=== PATIENT | female | born 1960 | race Caucasian/White ===

== ENCOUNTER 2017-08-21 16:30 | Inpatient (IN) | payer OTHER ==
[2017-08-21 17:30] LABS: BASOPHILS % 0.3 (0.0-1.5); EOSINOPHILS % 1.1 % (0.0-6.8); MEAN CORPUSCULAR HEMOGLOBIN 32.9 pg (28.0-34.0); MEAN CORPUSCULAR VOLUME 94.8 fl (80.0-100.0); MONOCYTES % 5.2 % (0.0-11.0); NEUTROPHILS # 6.4 # k/uL (1.4-7.7)
[2017-08-21 17:42] LABS: eGFR (African) > 60; eGFR (Non-African) > 60
--- NOTE | 2017-08-21 17:49 | ED Physician Documentation ---
Syncope/Near Syncope - HISTORIAN Historian: patient - HPI Stated Complaint: L shoulder pain Chief Complaint: Syncope Witnessed: No Position at Time of Episode: sitting Symptoms Prior to Episode: other Character of Events(s): lost consciousness Location of Injury: [place] Further Comments: yes (56 year old female patient presents with left shoulder pain. Patient states she fell in the closet and injuried her left shoulder around 1300. Patient reports she was going to the bathroom, when she passed completely out, woke up on floor. On arrival patient's heart 42-48) - ROS CONST: denies: recent illness, fever EYES/ENT: none GI/: denies: diarrhea, black stools, problems urinating, other LNMP: denies: , post menopausal, missed periods, heavy periods, abnml bleed, irregualar periods, other MS/SKIN/LYMPH: denies: joint pain, leg swelling, rash, swollen glands, ankle swelling, other NEURO/PSYCH: denies: confusion, anxiety, depression, other - PAST HX Cardiac Disease: none PE Risk Factors: hypertension Surgeries/Procedures: appendectomy, other (D&C) Allergies/Adverse Reactions: Allergies Allergy/AdvReac Type Severity Reaction Status Date / Time cefaclor [From Ceclor] Allergy Verified 08/21/17 17:07 Penicillins Allergy Verified 08/21/17 17:06 Home Medications: Ambulatory Orders Medication Instructions Recorded Lisinopril [Zestril] 1 tab PO DAILY 08/21/17 - SOCIAL HX Smoking History: cigarettes Alcohol Use: other (patient reports "occassional") - FAMILY HX Family History: denies: none - VITAL SIGNS Vital Signs: Vital Signs Temp Pulse Resp BP Pulse Ox 96.8 F L 96 H 17 139/67 96 08/21/17 16:40 08/21/17 16:40 08/21/17 16:40 08/21/17 16:40 08/21/17 16:40 - REVIEWED ASSESSMENTS Nursing Assessment Reviewed: Yes Vitals Reviewed: Yes Progress - Progress Progress: Patient heart rate 40's; BP stable. 1645 SR 60's now 1745 Reviewed xray and lab results with patient; Patient reports drinking 1 beer today; denies daily ETOH use. Explained that patient would need to be admitted for hyponatremia, cardiac monitoring and rule out MS. Patient states her sodium is low because she doesn't eat salt. Explained risk of not being admitted, explained she would have to sign out AMA. Offered admission at [facility] or transfer to higher level of care. Patient refused admission and transfer. 1800 RN counseled patient on risk and benifit of admission; patient refused admission and transfer. 1820 Immobilizer placed. AMA paperwork completed. 1830 Daughter at bedside; AMA explained, daughter reports patient drinks daily. 1840 Patient now agrees to admission at [facility]; does not agree to transfer. Call to [facility] patient accepted for admission. Will place on med surg; r/o MS , continue tele monitoring, ETOH withdraw assessments and public health social worker consult in the morning. ED Results Lab/Radiology - Lab Results Lab Results: Lab Results 08/21/17 08/21/17 08/21/17 17:25 17:25 17:25 WBC 8.90 K/ul K/ul (4.00-12.00) RBC 3.91 M/ul M/ul (3.90-5.20) Hgb 12.8 g/dL g/dL (12.0-16.0) Hct 37.0 % % (34.5-46.5) MCV 94.8 fl fl (80.0-100.0) MCH 32.9 pg pg (28.0-34.0) MCHC 34.7 g/dL g/dL (30.0-36.0) RDW 12.4 % % (11.3-14.3) Plt Count 284 K/mm3 K/mm3 (130-400) Neut % (Auto) 71.7 % % (39.0-79.0) Lymph % (Auto) 19.8 % % (16.0-50.0) [place] % (Auto) 5.2 % % (0.0-11.0) Eos % (Auto) 1.1 % % (0.0-6.8) Baso % (Auto) 0.3 (0.0-1.5) Neut # (Auto) 6.4 # k/uL # k/uL (1.4-7.7) Lymph # (Auto) 1.8 # k/uL # k/uL (0.6-4.0) [place] # (Auto) 0.5 # k/uL # k/uL (0.0-0.9) Eos # (Auto) 0.1 # k/uL # k/uL (0.0-0.6) Baso # (Auto) 0.0 # k/uL # k/uL (0.0-0.5) Reactive Lymphs % 2.0 % % (0.0-5.0) Reactive Lymphs # 0.2 # k/uL # k/uL (0.0-0.8) Sodium 122 mmol/L L mmol/L (136-145) Potassium 3.9 mmol/L mmol/L (3.5-5.1) Chloride 90 mmol/L L mmol/L (98-107) Carbon Dioxide 19 mmol/L L mmol/L (22-30) BUN 5 mg/dL L mg/dL (7-17) Creatinine 0.50 mg/dL L mg/dL (0.52-1.04) Estimated Creat Clear 144 Est GFR ( Amer) > 60 (60 - ) Est GFR (Non-Af Amer) > 60 (60 - ) Glucose 101 mg/dL mg/dL (74-106) Calcium 8.9 mg/dL mg/dL (8.4-10.2) Total Bilirubin 0.2 mg/dL mg/dL (0.2-1.3) AST 43 U/L U/L (15-46) ALT 47 U/L U/L (13-69) Alkaline Phosphatase 86 U/L U/L (38-126) Troponin I < 0.03 ng/mL L ng/mL (0.03-0.06) Total Protein 7.2 g/dL g/dL (6.3-8.2) Albumin 4.6 g/dL g/dL (3.5-5.0) Ethyl Alcohol 130.4 mg/dL H mg/dL (0.0-10.0) - Radiology Radiology Impressions: Left shoulder, 3 views History: Fall, shoulder pain Findings: Minimally displaced avulsion fracture of the greater tuberosity is present. Impacted humeral neck fracture is suspected. There is no dislocation or abnormal bone destruction. Impression: Greater tuberosity avulsion fracture. Suspected impacted humeral neck fracture. Electronically signed on Aug 21, 2017 5:30:46 PM CDT by: Dean Kim - Orders Orders: ED Orders Category Date Time Status Place IV Lock 1T Care 08/21/17 17:25 Active Shoulder Immobilizer 1T Care 08/21/17 18:06 Active SHOULDER 2 VIEWS OR MORE [RAD] Stat Exams 08/21/17 Ordered ALCOHOL MEDICAL USE ONLY Stat Lab 08/21/17 17:25 Completed CBC/PLATELET/DIFF Stat Lab 08/21/17 17:25 Completed CMP Stat Lab 08/21/17 17:25 Completed TROPONIN I (cTnI) Stat Lab 08/21/17 17:25 Completed UA W/MICRO IF INDICATED Stat Lab 08/21/17 16:52 Ordered Urine drug screen [DRUG SCREEN URINE MEDICAL ONLY] Stat Lab 08/21/17 16:52 Ordered 0.9 % Sodium Chloride [Normal Saline] 1,000 ml Med 08/21/17 18:09 Active IV NOW Chem Sticks Med 08/21/17 17:00 Ordered 1 each MC PRN Ketorolac Tromethamine [Toradol] Med 08/21/17 18:09 Discontinued 30 mg IVP NOW ONE EKG WITH COMPARISON Stat Ther 08/21/17 16:43 Ordered Syncope Physical Exam - Physical Exam General Appearance: moderate distress, other (strong smell of ETOH) EENT: nml eye inspection, PERRL Respiratory: no resp distress, chest non-tender, breath sounds normal CVS: reg rate & rhythm, heart sounds normal, equal pulses, no murmur, no gallop , PMI nml, no JVD, no friction rub, 24 Abdomen: non-tender, no organomegaly, nml bowel sounds, no distention Skin: normal color, warm/dry, NR, INT, PAL, DR Extremities: other (left shoulder - unable to move due to pain; deformity noted. ) - Neuro/Psych Higher Functions: alert, oriented x3, no evidence of acute CVA, mood/affect nml Cranial Nerves: nml as tested Cerebellar: nml as tested Sensorimotor: nml motor response, nml sensory response, nml reflexes, nml gait Discharge Clincal Impression: Bradycardia, Great tuberosity avulsion fracture Syncope Qualifiers: Syncope type: unspecified Qualified Code(s): R55 - Syncope and collapse EtOH dependence Qualifiers: Substance use status: with intoxication Complication of substance-induced condition: with unspecified complication Qualified Code(s): F10.229 - Alcohol dependence with intoxication, unspecified Referrals: Noreen Victoria MD [Primary Care Provider] - 2 Days Condition: Fair Disposition: 09 ADMITTED INPATIENT Decision to Admit: [id number] Decision Time: 18:41
[2017-08-21] MEDS ORDERED: KETOROLAC TROMETHAMINE 30 MG/1ML VIAL IVP ONE (18:09)
[2017-08-21] MEDS ORDERED: 0.9 % SODIUM CHLORIDE 1,000 ML IV ONE (18:09)
[2017-08-21] MEDS ORDERED: LORazepam 2 MG/ML VIAL IVP SCH (19:00)
[2017-08-21] MEDS ORDERED: LORazepam 2 MG/ML VIAL IVP PRN (20:13)
[2017-08-21 20:16] VITALS: BMI 23.6
[2017-08-21] MEDS: 0.9 % SODIUM CHLORIDE 1,000 ML IV SCH (20:36)
--- NOTE | 2017-08-21 20:41 | History and Physical Report ---
History of Present Illnes - History of Present Illness Reason for Visit: hyponatremia, syncopal episode, humeral head fracture, alcoholism History of Present Illness: 56 year old female admitted though the ER for hyponatremia, syncopal episode, and left humeral head fracture and alcoholism. Patient notes she was at home cleaning out a closet. She states she had piles of things on the floor. She states she tripped on one of the piles and fell and hit her left shoulder on a cedar chest. She states her shoulder started have pain immediately so she sat on her bed for a while. She states then she got up to go get some ibuprofen. She states she remembers walking into the bathroom and then woke up on the floor. She does not believe she hit her head. She denies any chest pain, shortness, of breath, or dizziness. She states she did feel a little warm before she got up to walk to the bathroom. She states her wanted her to come in to be checked out. Labs in the ER revealed sodium of 122 and chloride of 90. Her initial heart rate was in the 40s. Naa admits to having drank one beer prior to falling. She states she had some coffee in the am but had not had any water throughout the day. Her daughter reported to ER providers that she drinks multiple beers daily. Patient refused transfer to [place] for specialist care. She was placed in shoulder immobilizer in the ER. At the time of interview the patient has removed the shoulder immobilizer and refuses to put it back on. She states it was uncomfortable to wear so she took it off. Patient was initially reluctant to be admitted but states she understands why she needs to be here. She states she is feeling fine and denies any other concerns at this time. - Past Medical History Cardiac: HTN. 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 ) Lives: With Family () - Health Maintenance Health Maintenance: Pneumococcal Vaccine (patient reports pneumonia vaccine earlier this year). denies: Influenza Vaccine Influenza Vaccine: No (patient declines) Pneumonia Vaccine: No Resuscitation Status: Resusciation Status Resuscitation Status Full Code Review of Systems - Review of Systems Constitutional: negative: Fever, Chills Eyes: negative: vision change ENT: negative: Ear Pain, Nose Discharge, Nose Congestion, Throat Pain Respiratory: negative: Cough, Shortness of Breath, Wheezing Cardiovascular: negative: Chest Pain, Palpitations, Light Headedness Gastrointestinal: negative: Nausea, Vomiting, Abdominal Pain, Diarrhea, Constipation Genitourinary: negative: Dysuria Musculoskeletal: Shoulder Pain (left shoulder pain - 4-5/10 at time of interivew - humeral head avulsion fracture). negative: Neck Pain Skin: negative: Rash, Bruising Neurological: negative: Weakness, Numbness, Change in Speech, Confusion - Medications/Allergies Allergies/Adverse Reactions: Allergies Allergy/AdvReac Type Severity Reaction Status Date / Time cefaclor [From [facility]] Allergy Verified 08/21/17 17:07 Penicillins Allergy Verified 08/21/17 17:06 Home Medications: Home Medications Lisinopril [Zestril] 1 tab PO DAILY 08/21/17 Current Inpatient Medications: Current Inpatient Medications Acetaminophen (Tylenol Extra Strength) 1,000 mg PO Q4H PRN PRN Reason: PAIN Sodium Chloride (Normal Saline) 1,000 mls @ 150 mls/hr IV NOW ONE Stop: 08/22/17 00:48 Last Admin: 08/21/17 18:36 Dose: 150 mls/hr Sodium Chloride (Normal Saline) 1,000 mls @ 100 mls/hr IV Q10H [facility] Last Admin: 08/21/17 20:36 Dose: 100 mls/hr Lorazepam (Ativan) 1 mg IVP Q4H PRN PRN Reason: Agitation Miscellaneous (Chem Sticks) 1 each MC PRN [facility] Last Admin: 08/21/17 17:00 Dose: 1 each Miscellaneous (Lisinopril [Zestril]) 1 tab PO DAILY [facility] Exam - Exam Vital Signs: Vital Signs (72 hours) 08/21/17 19:25 Temperature 96.9 F L Pulse Rate [ 69 Right Pulse ox] Respiratory 16 Rate Blood Pressure 177/90 [Right Arm] O2 Sat by Pulse 100 Oximetry General: Alert, Oriented to Person, Oriented to Place, Oriented to Time, Cooperative, No acute distress, Thin HEENT: Atraumatic, PERRLA, EOMI, Mouth Mucous membr. moist/[place], Dentition Normal Neck: Normal Range of Motion Lungs: Clear to auscultation, Normal air movement, Speaks full Sentences. No: Wheezes, Rales, Rhonchi Cardiovascular: Regular rate, Normal S1, Normal S2, No murmurs Abdomen: Normal bowel sounds, Soft, No tenderness Integumentary: Normal, Warm, Dry Extremities: No clubbing, No cyanosis, No edema, Normal pulses, No tenderness/ swelling Neurological: Normal gait, Normal speech, Strength Equal Bilat Psych/Mental Status: Mental status NL, Mood NL - Laboratory Results Laboratory Results: Laboratory Results - last 24 hr 08/21/17 08/21/17 08/21/17 17:25 17:25 17:25 WBC 8.90 RBC 3.91 Hgb 12.8 Hct 37.0 MCV 94.8 MCH 32.9 MCHC 34.7 RDW 12.4 Plt Count 284 Neut % (Auto) 71.7 Lymph % (Auto) 19.8 [place] % (Auto) 5.2 Eos % (Auto) 1.1 Baso % (Auto) 0.3 Neut # (Auto) 6.4 Lymph # (Auto) 1.8 [place] # (Auto) 0.5 Eos # (Auto) 0.1 Baso # (Auto) 0.0 Reactive Lymphs % 2.0 Reactive Lymphs # 0.2 Sodium 122 L Potassium 3.9 Chloride 90 L Carbon Dioxide 19 L BUN 5 L Creatinine 0.50 L Estimated Creat Clear 144 Est GFR ( Amer) > 60 Est GFR (Non-Af Amer) > 60 Glucose 101 Calcium 8.9 Total Bilirubin 0.2 AST 43 ALT 47 Alkaline Phosphatase 86 Troponin I < 0.03 L Total Protein 7.2 Albumin 4.6 Ethyl Alcohol 130.4 H Assessment/Plan - Assessment/Plan (1) Hyponatremia Status: Acute Current Visit: Yes Assessment: Sodium of 122 in ER and syncopal episode prior to arrival in ED. Plan: NS running at 100/hr. Otherwise mild fluid restriction of 1500ml. Regular diet. Recheck labs in the morning. (2) Hypertension Status: Acute Current Visit: Yes Assessment: Blood pressure well controlled to this point. Takes lisinopril at home daily. Plan: Continue home medication of lisinopril 10mg daily. Continue to monitor BP. (3) Fracture of humeral head, closed Status: Acute Current Visit: Yes Assessment: Xray shows avulsion fracture of the left humeral head. Plan: Left arm placed in shoulder immobilizer. Patient refuses to wear it at time of interview. Reviewed Xray images with patient is discussed the risk of further harm and possible permanent damage to the function of her left shoulder and arm. She voices under standing. She is agreeable to trying an ice pack for 20- 30 minutes and then trying the shoulder immobilizer again. Tomorrow we will call for ortho appointment/follow up after discharge. (4) Bradycardia Status: Acute Current Visit: Yes Assessment: Initial heart rate reading in the 40s. Subsequent HR readings have been WNL. Plan: Patient on telemetry. Will continue to monitor HR. (5) EtOH dependence Status: Acute Current Visit: Yes Qualifiers: Substance use status: with intoxication Complication of substance-induced condition: with unspecified complication Qualified Code(s): F10.229 - Alcohol dependence with intoxication, unspecified Assessment: Patient admits to daily alcohol use of 1-2 beers per night. Her daughter reported higher amounts of alcohol use daily to the ER provider. Patient does smell of alcohol at time of interview. BAL was 130 in ED. Patient is speaking in complete sentences and answers questions appropriately. She is not slurring her words. She is able to communicate a clear decision. She was able to ask questions and appropriately weigh risks and benefits of her decisions. She appears to be of sound mind and have capacity for decision making regarding medical decisions at time of interview. Plan: CIWA protocol initiated for possible withdrawal symptoms. She denies any history of DTs or seizures related to alcohol withdrawal. Verified that nursing staff has [facility] protocol for assessment and ativan dosing based on the score. Patient will be evaluated every 2 hours. (6) Syncope Status: Acute Current Visit: Yes Qualifiers: Syncope type: unspecified Qualified Code(s): R55 - Syncope and collapse Assessment: Patient reports waking up on bathroom floor without remembering falling. She denies any chest pain, dizziness, shortness of breath. She states she is feeling fine and does not feel like she is going to "blackout" Plan: Patient is on telemetry. Serial troponins ordered. EKG in ER was negative. VTE Assessment - RISK FACTOR SCORE VTE RISK FACTOR SCORES: AGE 40-60 YEARS, SMOKER - RISK VTE MODERATE RISK: SCORE OF 2 (RISK PROXIMAL DVT 2-4%) PROPHYAXIS NEEDED
[2017-08-21] MEDS ORDERED: CITALOPRAM HYDROBROMIDE 20 MG TABLET PO SCH (21:00)
[2017-08-21] MEDS: ACETAMINOPHEN 500 MG TABLET PO PRN (21:35)
[2017-08-22 00:55] LABS: eGFR (African) > 60; eGFR (Non-African) > 60
[2017-08-22] MEDS ORDERED: LISINOPRIL 5 MG TABLET ONE (01:51)
[2017-08-22] MEDS: 0.9 % SODIUM CHLORIDE 1,000 ML IV SCH (05:14)
[2017-08-22] MEDS: ACETAMINOPHEN 500 MG TABLET PO PRN (05:43)
--- NOTE | 2017-08-22 06:06 | Diagnostic Imaging Report ---
ZACK CHURCH (DRAFTER CIVIL (CAD)) - ER [facility] [address] [facility] [address] [address] Report Submission Date: Aug 21, 2017 5:30:46 PM CDT Patient Study Name: MONICA LEE Date: Aug 21, 2017 4:59:44 PM CDT Modality Type: DX Gender: F Description: SHOULDER : 56 Institution: [facility] Physician: ZACK CHURCH (DRAFTER CIVIL (CAD)) - ER Left shoulder, 3 views History: Fall, shoulder pain Findings: Minimally displaced avulsion fracture of the greater tuberosity is present. Impacted humeral neck fracture is suspected. There is no dislocation or abnormal bone destruction. Impression: Greater tuberosity avulsion fracture. Suspected impacted humeral neck fracture. Electronically signed on Aug 21, 2017 5:30:46 PM CDT by: Dean COTTON
[2017-08-22 06:12] LABS: eGFR (African) > 60; eGFR (Non-African) > 60
[2017-08-22 07:21] LABS: APPEARANCE,URINE CLEAR (CLEAR); COLOR,URINE YELLOW (YELLOW); OCCULT BLOOD,URINE NEGATIVE (NEGATIVE); UROBILINOGEN URINE 0.2 Eu (0.2-1.0)
[2017-08-22 07:24] LABS: CANNABINOIDS NEGATIVE ng/mL (< 50); METHYLENEDIOXYMETHAMPHETAMINE NEGATIVE ng/mL (<500)
[2017-08-22] MEDS ORDERED: LISINOPRIL PO SCH (09:00)
[2017-08-22] MEDS ORDERED: LISINOPRIL 5 MG TABLET PO SCH (09:00)
[2017-08-22] MEDS ORDERED: LISINOPRIL 10 MG PO SCH (09:00)
--- NOTE | 2017-08-22 10:55 | Discharge Summary ---
Discharge Summary - Discharge Sumary History of Present Illness: Patient is a 56 year old female who was admitted though the ER for a syncopal episode on 08/21/2017. The patient reported no symptoms prior to waking up on the bathroom floor. She had tripped earlier in the night and had injured her left shoulder. Xrays showed that she has an avulsion fracture of the greater tuberosity of the left humerous. She was placed in a shoulder immobilizer. She reports her pain today is a 2-3/10 unless she moves around then she is at a 7/ 10. Her heart rate was in the 40s upon arrival, but quickly returned to and stayed in the 60s-70s. She was in sinus rhythm in the ER yesterday and on repeat EKG this morning. Overnight she had a few episodes of lower heart rate down into the 40s with bigeminy and trigeminy rhythms recorded on heart monitor. During each episode patient denied any symptoms of chest pain, dizziness and she did not lose consciousness. Serial troponins were negative through the night. Her sodium was low on arrival at 122. Patient received normal saline overnight and her sodium was improved this morning at 130. She her BAL was 130 on admission. She was placed on alcohol precautions due to daughters reports of daily alcohol use. She did not score on CIWA throughout her hospitalization. This morning patient is requesting discharge with outpatient follow up. She would like to be seen by [facility] for her syncopal episode and by [facility] for her shoulder fracture. Patient states she is feeling well today and denies any symptoms except for Shoulder pain as rated above. ROS otherwise negative. Exam this morning revealed: General: Patient is alert and oriented x3, is in no acute distress Cardiology: RRR at time of interview this morning. Respiratory: CTA, no wheezing, no rales Abdominal: Abdomen is soft, nontender, non distended, bowel sounds normal Extremities: Left UE: Sensation intact bilaterally. In shoulder immobilizer. Intermittent ice pack to shoulder. Kitchen Assistant strength equal bilaterally. Cap refill less than 2 seconds bilaterally. No lower extremity edema. I have contacted [facility] and spoke with Dr. Leon who will see the patient in the next week. He requests she have an event monitor put on today. They will call to set up appointment with the patient. She has appointment at [facility] to get Event monitor this afternoon 08/22/2017 at 3: 30pm. Patient is aware of appointment and states she is able to make this appointment time today. Order for event monitor given to patient to take with her to appointment today with diagnosis of syncope. I have contacted [facility] and spoke with Dr. Whitney's Nurse who has arranged for ortho follow up today 08/22/2017 at 1:20pm. Patient is aware of follow up and states she is able to make this appointment time today. Patient was given disc of imaging to take to her appointment. She is to call and make an appointment with Dr. Noreen Victoria in the next 1 week. She states she will call and set this up herself. We will fax records for Dr. Victoria to review. Condition at Discharge: Stable Home Medications: Ambulatory Orders Medication Instructions Recorded Lisinopril [Zestril] 1 tab PO DAILY 08/21/17 Acetaminophen [Tylenol Extra 1,000 mg PO Q4H PRN tablet 08/22/17 Strength] Citalopram Hydrobromide [Celexa] 5 mg PO HS tablet 08/22/17 Lisinopril [Prinivil] 10 mg PO QD tablet 08/22/17 Consultations this Visit: None Procedures this Visit: None Allergies/Adverse Reactions: Allergies Allergy/AdvReac Type Severity Reaction Status Date / Time cefaclor [From [facility]] Allergy Verified 08/21/17 17:07 Penicillins Allergy Verified 08/21/17 17:06 Patient Problems: Current Active Problems Problem Status Onset Bradycardia Acute EtOH dependence Acute Fracture of humeral head, closed Acute Hypertension Acute Hyponatremia Acute Syncope Acute - Final Diagnosis (1) Hyponatremia Problems: Improved with normal saline. Follow up with PCP for recheck in one week. (2) Hypertension Problems: Well controlled. Continue home medications. Follow up with Dr. Leon (3) Fracture of humeral head, closed Problems: Patient has ortho follow up scheduled for today with [facility]. (4) Bradycardia Problems: Follow up with [facility]. (5) EtOH dependence Problems: Patient did not show symptoms of withdrawal and did not require ativan for withdrawal symptoms based on CIWA scoring. (6) Syncope Problems: Event monitor to be put on this afternoon. Patient to follow up with [place] Leon [place] [facility]
[2017-08-22 11:37] VITALS: BP 162/77
== END 2017-08-22 12:25 | disposition home or self-care (01) | DRG 309 ==
LOC: ED 16:30 → SOUTH 18:40
PROVIDERS: ADMIT Physician Assistant; ATTEND Physician Assistant
DX: R00.1 Bradycardia, unspecified (principal); S42.255A Nondisplaced fracture of greater tuberosity of left humerus, initial encounter for closed fracture; E87.1 Hypo-osmolality and hyponatremia; I10 Essential (primary) hypertension; W19.XXXA Unspecified fall, initial encounter; Y93.9 Activity, unspecified; Y92.9 Unspecified place or not applicable; Y99.9 Unspecified external cause status
CPT/HCPCS: 73030; 80048; 80053; 80320; 80377; 81002; 82550; 82553; 84484; 85025; 93005; J1885; J7030; 96372; 99222; 99238; G0480; G0481; S1016